=== PATIENT | female | born 1965 | race Two or more races ===

== ENCOUNTER 2019-12-07 19:13 | Emergency (ER) | payer MEDICAID, OTHER ==
[~2019-12-07] VITALS: Ht 167.6 cm; Wt 90.7 kg
[2019-12-07 20:20] LABS: Basophils # (auto) 0 10 ^3/uL (0-0.2); Basophils % (auto) 0.3 % (0.0-2.0); Eosinophils # (auto) 0.2 10 ^3/uL (0-0.8); Eosinophils % (auto) 2.5 % (0.0-7.0); Hematocrit 45.7 % (36.0-46.0); Lymphocytes # (auto) 2.7 10 ^3/uL (0.4-5.4); Lymphocytes % (auto) 29.2 % (10.0-50.0); Mean Corpuscular Hemoglobin 30.1 pg (28.0-32.0); Mean Corpuscular Hgb Conc. 32.7 g/dL (32.0-36.0); Mean Corpuscular Volume 91.9 fL (80.0-100.0); Monocytes # (auto) 0.6 10 ^3/uL (0-1.3); Neutrophils # (auto) 5.8 10 ^3/uL (1.6-8.6); Platelet Count (auto) 248 10^3/uL (140-450); Red Blood Cells 4.98 10^6/uL (4.0-5.20); Red Cell Distribution Width 14.8 % (11.8-14.3); White Blood Cell 9.3 10^3/uL (4.4-10.8)
[2019-12-07 20:27] LABS: Urine Bacteria FEW /hpf (None Seen); Urine Blood Negative /uL (Negative); Urine Hyaline Cast FEW /lpf (0 - 2); Urine Specific Gravity 1.031 (1.001-1.035); Urine WBC <1 /hpf (0 - 5)
[2019-12-07 20:31] LABS: Albumin 3.5 g/dL (3.4-5.0); Anion Gap 7 (5-15); Blood Urea Nitrogen 19 mg/dL (7-18); Calcium 9.6 mg/dL (8.5-10.1); Carbon Dioxide 28 mmol/L (21-32); Chloride 103 mmol/L (98-107); Glucose 306 mg/dL (74-106); Potassium 4.4 mmol/L (3.5-5.1); Sodium 138 mmol/L (136-145)
[2019-12-07 20:36] LABS: INR 0.93 (0.9-1.15); Partial Thromboplastin Time 23.9 sec (23.0-31.2)
[2019-12-07 20:37] LABS: Alanine Aminotransferase 33 U/L (13-56); Alkaline Phosphatase 83 U/L (45-117); Aspartate Aminotransferase 23 U/L (15-37); BUN/Creatinine Ratio 21.1; Bilirubin, Total 0.4 mg/dL (0.2-1.0); GFR African American 84 mL/min; GFR Non-African American 70 mL/min; Total Protein 7.9 g/dL (6.4-8.2)
[2019-12-07 22:07] VITALS: BP 152/99
== END 2019-12-07 20:46 | disposition home or self-care (01) ==
LOC: ER 19:13
DX: R07.89 Other chest pain (principal); I10 Essential (primary) hypertension; E11.9 Type 2 diabetes mellitus without complications; Z86.73 Personal history of transient ischemic attack (TIA), and cerebral infarction without residual deficits; Z90.49 Acquired absence of other specified parts of digestive tract; Z90.710 Acquired absence of both cervix and uterus; Z98.890 Other specified postprocedural states
CPT/HCPCS: 36415; 71046; 80053; 81001; 84484; 85025; 85610; 85730; 93005

== ENCOUNTER 2020-11-25 20:17 | Emergency (ER) | payer MEDICAID ==
[~2020-11-25] VITALS: Ht 167.6 cm; Wt 97.1 kg
[2020-11-25 23:00] VITALS: BP 152/88
[2020-11-25 23:24] LABS: Basophils # (auto) 0 10 ^3/uL (0-0.2); Basophils % (auto) 0.5 % (0.0-2.0); Eosinophils # (auto) 0.2 10 ^3/uL (0-0.8); Hematocrit 44.1 % (36.0-46.0); Hemoglobin 14.9 g/dL (12.2-16.2); Lymphocytes # (auto) 3.1 10 ^3/uL (0.4-5.4); Lymphocytes % (auto) 36.9 % (10.0-50.0); Mean Corpuscular Hemoglobin 30.7 pg (28.0-32.0); Mean Corpuscular Hgb Conc. 33.7 g/dL (32.0-36.0); Mean Corpuscular Volume 91.1 fL (80.0-100.0); Monocytes # (auto) 0.5 10 ^3/uL (0-1.3); Monocytes % (auto) 6.5 % (0.0-12.0); Neutrophils # (auto) 4.5 10 ^3/uL (1.6-8.6); Neutrophils % (auto) 54.1 % (37.0-80.0); Nucleated Red Blood Cells % 0.1 %; Red Blood Cells 4.85 10^6/uL (4.0-5.20); Red Cell Distribution Width 13.6 % (11.8-14.3); White Blood Cell 8.3 10^3/uL (4.4-10.8)
[2020-11-25 23:34] LABS: Urine Bacteria NONE SEEN /hpf (None Seen); Urine Blood Negative /uL (Negative); Urine Mucus FEW (None Seen); Urine Specific Gravity 1.032 (1.001-1.035); Urine WBC 2 /hpf (0 - 5)
[2020-11-25 23:42] LABS: Albumin 3.5 g/dL (3.4-5.0); Calcium 9.3 mg/dL (8.5-10.1); Magnesium 2.1 mg/dL (1.6-2.6); Potassium 3.6 mmol/L (3.5-5.1)
[2020-11-25 23:46] LABS: BUN/Creatinine Ratio 19.3; Bilirubin, Total 0.4 mg/dL (0.2-1.0); CRP High Sensitivity 0.65 mg/dL (< 0.3); Total Protein 7.8 g/dL (6.4-8.2)
== END 2020-11-26 01:48 | disposition home or self-care (01) ==
LOC: ER 20:18
DX: S92.511A Displaced fracture of proximal phalanx of right lesser toe(s), initial encounter for closed fracture (principal); E11.621 Type 2 diabetes mellitus with foot ulcer; I10 Essential (primary) hypertension; F41.9 Anxiety disorder, unspecified; E78.5 Hyperlipidemia, unspecified; Z86.73 Personal history of transient ischemic attack (TIA), and cerebral infarction without residual deficits; Z90.49 Acquired absence of other specified parts of digestive tract; Z90.710 Acquired absence of both cervix and uterus; Z98.890 Other specified postprocedural states; X58.XXXA Exposure to other specified factors, initial encounter; Y93.89 Activity, other specified; Y92.89 Other specified places as the place of occurrence of the external cause; Y99.8 Other external cause status
CPT/HCPCS: 36415; 73630; 80053; 81001; 83605; 83735; 85025; 85610; 85652; 86141

== ENCOUNTER → 2021-08-12 | Outpatient (CLI) | payer MEDICAID ==
[2021-08-12 10:36] LABS: Potassium 3.5 mmol/L (3.5-5.1)
[2021-08-12 10:51] LABS: Albumin 3.3 g/dL (3.4-5.0); BUN/Creatinine Ratio 25.7; Bilirubin, Total 0.7 mg/dL (0.2-1.0); Calcium 9.2 mg/dL (8.5-10.1); Total Protein 7.2 g/dL (6.4-8.2); Uric Acid 4.4 mg/dL (2.6-6.0)
== END | disposition home or self-care (01) ==
LOC: LAB 08:55
PROVIDERS: ATTEND Podiatrist
DX: B35.3 Tinea pedis (principal); E11.42 Type 2 diabetes mellitus with diabetic polyneuropathy; L85.3 Xerosis cutis
CPT/HCPCS: 36415; 80053; 84550

== ENCOUNTER 2023-07-27 08:25 | Inpatient (IN) | payer MEDICAID ==
[~2023-07-27] VITALS: Ht 167.6 cm; Wt 101.2 kg
[2023-07-27 08:40] LABS: Basophils # (auto) 0 10 ^3/uL (0-0.2); Basophils % (auto) 0.3 % (0.0-2.0); Eosinophils # (auto) 0.1 10 ^3/uL (0-0.8); Eosinophils % (auto) 1.4 % (0.0-7.0); Hematocrit 41.5 % (36.0-46.0); Hemoglobin 13.8 g/dL (12.2-16.2); Lymphocytes # (auto) 2.5 10 ^3/uL (0.4-5.4); Mean Corpuscular Hgb Conc. 33.3 g/dL (32.0-36.0); Mean Corpuscular Volume 93.1 fL (80.0-100.0); Monocytes # (auto) 0.7 10 ^3/uL (0-1.3); Monocytes % (auto) 8.4 % (0.0-12.0); Neutrophils % (auto) 59.9 % (37.0-80.0); Nucleated Red Blood Cells % 0.1 %; Red Blood Cells 4.46 10^6/uL (4.0-5.20); Red Cell Distribution Width 15.3 % (11.8-14.3); White Blood Cell 8.4 10^3/uL (4.4-10.8)
[2023-07-27 08:59] LABS: Alanine Aminotransferase 21 U/L (7-40); Albumin 4.4 g/dL (3.2-4.8); Alkaline Phosphatase 80 U/L (46-116); Anion Gap 7 (5-15); Aspartate Aminotransferase 27 U/L (13-40); Bilirubin, Total 0.2 mg/dL (0.2-1.0); Blood Urea Nitrogen 29 mg/dL (9-23); Calcium 9.3 mg/dL (8.5-10.1); Carbon Dioxide 28 mmol/L (20-30); Chloride 104 mmol/L (98-107); Glucose 265 mg/dL (74-106); Sodium 139 mmol/L (136-145); Total Protein 7.6 g/dL (5.7-8.2)
[2023-07-27 09:28] VITALS: PULSE 87; RESP 16; O2SAT 90
[2023-07-27 10:48] LABS: Urine Bacteria None Seen /hpf (None Seen)
[2023-07-27 11:17] LABS: Urine Blood Negative /uL (Negative); Urine Clarity Clear (Clear); Urine Color Light-Yellow (Yellow); Urine Protein, UAD Negative (Negative); Urine Specific Gravity 1.032 (1.001-1.035); Urine Urobilinogen Normal (Negative); Urine WBC 3 /hpf (0 - 5); Urine pH 5.5 (5.0-9.0)
[2023-07-27] MEDS: ASPirin 325 MG TAB PO ONE (12:04)
[2023-07-27] MEDS: SODIUM CHLORIDE 0.9% 1,000 ML IV ONE (12:05)
[2023-07-27] MEDS: NITROGLYCERIN 0.4 MG SL TAB SL ONE (12:05)
[2023-07-27] MEDS ORDERED: NITROGLYCERIN 0.4 MG SL TAB SL PRN (12:15)
[2023-07-27] MEDS ORDERED: ONDANSETRON HCL 4 MG/2 ML VIAL IV PRN (12:15)
[2023-07-27] MEDS ORDERED: ACETAMINOPHEN 325 MG TAB PO PRN (12:15)
[2023-07-27 12:45] LABS: INR 0.97 (0.9-1.15); Prothrombin Time 10.3 sec (9.3-11.8)
[2023-07-27] MEDS: OXYCODONE W/ ACETAMINOPHEN 5/325MG TABLET PO ONE (13:02)
[2023-07-27] MEDS: GABAPENTIN 300 MG CAP PO ONE (13:02)
[2023-07-27] MEDS ORDERED: DEXTROSE (50%) 50ML SYRG IV PRN (14:15)
[2023-07-27 16:22] LABS: LDL Cholesterol 44 mg/dL (< 100); Triglycerides 274 mg/dL (< 150)
[2023-07-27 16:24] LABS: Cholesterol 109 mg/dL (< 200); HDL Cholesterol 35 mg/dL (40-59)
[2023-07-27] MEDS: ACCU-CHEK COMFORT CURVE STRIP VI SCH (17:42)
[2023-07-27] MEDS: InsuLIN REG 1unit/0.01ml Soln (100units/ml) SC SCH (17:43)
[2023-07-27] MEDS ORDERED: SULF500T37 PO (17:56)
[2023-07-27] MEDS ORDERED: GABA-339 PO (17:56)
[2023-07-27 18:56] LABS: Amphetamine Screen, Urine Neg (NEGATIVE); Barbiturate Scree,Urine Neg (NEGATIVE); Benzodiazephine Screen, Urine Neg (NEGATIVE); Cannabinoid Screen, Urine Neg (NEGATIVE); Cocaine Screen, Urine Neg (NEGATIVE); Opiate Scree,Urine Neg (NEGATIVE); Phencyclidine Screen, Urine Neg (NEGATIVE)
[2023-07-27 18:59] LABS: Creatinine, Urine 64.97 mg/dL (30.0-125.0)
[2023-07-27 20:00] VITALS: PULSE 82; RESP 18; O2SAT 92
[2023-07-27 21:30] VITALS: BP 100/57; PULSE 88; RESP 17; O2SAT 99
[2023-07-27] MEDS: ATORVASTATIN 20 MG TAB PO SCH (23:33)
[2023-07-27] MEDS: ENOXAPARIN SOD 100 MG/1 ML SYRINGE SC SCH (23:34)
[2023-07-28] VITALS (8 sets, daily range): BP systolic 101–133; BP diastolic 56–76; PULSE 72–83; RESP 17–20; TEMP 97.7–99.1; O2SAT 90–96
[2023-07-28 07:16] LABS: Alanine Aminotransferase 16 U/L (7-40); Albumin 3.8 g/dL (3.2-4.8); Alkaline Phosphatase 63 U/L (46-116); Anion Gap 8 (5-15); Aspartate Aminotransferase 22 U/L (13-40); Blood Urea Nitrogen 23 mg/dL (9-23); Carbon Dioxide 26 mmol/L (20-30); Chloride 107 mmol/L (98-107); Cholesterol 103 mg/dL (< 200); Glucose 183 mg/dL (74-106); HDL Cholesterol 28 mg/dL (40-59); LDL Cholesterol 40 mg/dL (< 100); Sodium 141 mmol/L (136-145); Triglycerides 298 mg/dL (< 150)
[2023-07-28 07:17] LABS: Bilirubin, Total 0.3 mg/dL (0.2-1.0); Total Protein 6.5 g/dL (5.7-8.2)
[2023-07-28 07:25] LABS: Basophils # (auto) 0 10 ^3/uL (0-0.2); Basophils % (auto) 0.2 % (0.0-2.0); Eosinophils # (auto) 0.1 10 ^3/uL (0-0.8); Eosinophils % (auto) 1.3 % (0.0-7.0); Hematocrit 36.4 % (36.0-46.0); Lymphocytes # (auto) 3.3 10 ^3/uL (0.4-5.4); Lymphocytes % (auto) 37.9 % (10.0-50.0); Mean Corpuscular Hemoglobin 30.3 pg (28.0-32.0); Mean Corpuscular Hgb Conc. 32.8 g/dL (32.0-36.0); Mean Corpuscular Volume 92.3 fL (80.0-100.0); Monocytes # (auto) 0.7 10 ^3/uL (0-1.3); Neutrophils # (auto) 4.6 10 ^3/uL (1.6-8.6); Neutrophils % (auto) 52.6 % (37.0-80.0); Red Blood Cells 3.95 10^6/uL (4.0-5.20); Red Cell Distribution Width 15.1 % (11.8-14.3); White Blood Cell 8.7 10^3/uL (4.4-10.8)
[2023-07-28] MEDS: DOCUSATE SOD 100 MG CAP PO SCH (10:00)
[2023-07-28] MEDS: ASPirin 81 mg TAB PO SCH (11:10)
[2023-07-28] MEDS: MORPHINE SULFATE 4 MG/ML SYR/VIAL IV PRN (11:12)
[2023-07-28] MEDS ORDERED: DEXTROSE (50%) 50ML SYRG IV PRN (11:45)
[2023-07-28] MEDS: GABAPENTIN 400 MG CAP PO SCH (12:50)
[2023-07-28] MEDS: PANTOPRAZOLE 40 MG TAB PO ONE (12:50)
[2023-07-28] MEDS: ACCU-CHEK COMFORT CURVE STRIP VI SCH (18:09)
[2023-07-28] MEDS: InsuLIN REG 1unit/0.01ml Soln (100units/ml) SC SCH ×2 (18:17→21:56)
[2023-07-28] MEDS: OXYCODONE W/ ACETAMINOPHEN 5/325MG TABLET PO PRN (21:48)
[2023-07-29] VITALS (11 sets, daily range): BP systolic 107–152; BP diastolic 67–86; PULSE 75–87; RESP 16–18; TEMP 36.6; O2SAT 93–96
[2023-07-29] MEDS: ADENOSINE 85 MG in GIVE UN-DILUTED 0 ML IV ONE (09:37)
[2023-07-29] MEDS: PANTOPRAZOLE 40 MG TAB PO SCH (10:59)
[2023-07-29] MEDS: IODIXANOL 320MG/ML 100ML BTL IV ONE (13:03)
[2023-07-29] MEDS: LIDOCAINE 2%HCL (LOCAL ANESTH.) INJ 20ML MDV ONE (13:03)
[2023-07-29] MEDS: ANGIOMAX 250 MG VIAL IV ONE (13:51)
[2023-07-29] MEDS: SODIUM CHL 0.9% 0 ML ONE (13:52)
[2023-07-29] MEDS: MIDAZOLAM HCL 2MG/2ML 2ml VIAL (1mg/ml) ONE (13:52)
[2023-07-29] MEDS: VERAPAMIL 2.5MG/ML INJ 2ML VIAL IV ONE (13:52)
[2023-07-29] MEDS: fentaNYL CITRATE 100 MCG/2 ML VL ONE (13:52)
[2023-07-29] MEDS: HEPARIN SODIUM (PORCINE) 5000 UNITS/ML 1ML VIAL ONE (13:52)
[2023-07-29] MEDS ORDERED: GABA800T97 PO (15:24)
[2023-07-29] MEDS ORDERED: METF-372 PO (15:24)
[2023-07-29] MEDS ORDERED: DULO60CA41 PO (15:37)
[2023-07-29] MEDS ORDERED: ROSU10TA16 PO (15:37)
[2023-07-29] MEDS ORDERED: INSU100I26 SC (15:37)
[2023-07-29] MEDS ORDERED: OXYC-963 PO (15:37)
[2023-07-29] MEDS ORDERED: CHOL20007 PO (15:37)
[2023-07-29] MEDS ORDERED: LISI40TA16 PO (15:37)
[2023-07-29] MEDS ORDERED: EMPA1TAB3 PO (15:37)
[2023-07-29] MEDS ORDERED: ASPI1TAB19 PO (15:37)
[2023-07-29] MEDS ORDERED: INSU1INJ19 SC (15:37)
== END 2023-07-29 18:55 | disposition home or self-care (01) | DRG 191 ==
LOC: ER 08:25 → EDUNIT# 08:25 → TELE 14:36 → TELE-WESTW 21:13
PROVIDERS: ADMIT Nurse Practitioner Family; ATTEND Internal Medicine
PROC: 4A023N7 Measurement of Cardiac Sampling and Pressure, Left Heart, Percutaneous Approach (ICD-10-PCS; principal; 2023-07-29)
PROC: B211YZZ Fluoroscopy of Multiple Coronary Arteries using Other Contrast (ICD-10-PCS; 2023-07-29)
DX: I25.118 Atherosclerotic heart disease of native coronary artery with other forms of angina pectoris (principal); N17.0 Acute kidney failure with tubular necrosis; E11.42 Type 2 diabetes mellitus with diabetic polyneuropathy; I95.9 Hypotension, unspecified; E11.65 Type 2 diabetes mellitus with hyperglycemia; E66.01 Morbid (severe) obesity due to excess calories; E78.5 Hyperlipidemia, unspecified; I10 Essential (primary) hypertension; M06.9 Rheumatoid arthritis, unspecified; F41.9 Anxiety disorder, unspecified; F32.A Depression, unspecified; Z79.899 Other long term (current) drug therapy; Z79.4 Long term (current) use of insulin; Z86.73 Personal history of transient ischemic attack (TIA), and cerebral infarction without residual deficits; Z82.49 Family history of ischemic heart disease and other diseases of the circulatory system; Z90.49 Acquired absence of other specified parts of digestive tract; Z90.710 Acquired absence of both cervix and uterus; Z68.36 Body mass index [BMI] 36.0-36.9, adult
CPT/HCPCS: 36415; 71045; 78452; 80053; 80061; 80307; 81001; 82570; 82962; 83036; 83735; 84300; 84443; 84484; 85025; 85379; 85610; 93005; 93017; 93306; 93458; 93970; 96360; 99152; G0378; J0153; J1815; J2250; Q9967